=== PATIENT | female | born 1960 | race Caucasian/White ===

== ENCOUNTER 2018-07-30 10:29 | Emergency (ER) | payer OTHER, SELFPAY ==
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
--- NOTE | 2018-07-30 13:18 | RAD REPORT ---
EXAM DESCRIPTION: RAD - Chest Single View - 07/30/2018 1:03 pm CLINICAL HISTORY: chest tightness Chest pain. COMPARISON: No comparisons FINDINGS: Portable technique limits examination quality. The lungs are emphysematous but grossly clear. The heart is normal in size. No displaced fractures. IMPRESSION: COPD.
--- NOTE | 2018-07-30 13:23 | RAD REPORT ---
EXAM DESCRIPTION: US - Extrem Venous W Compress Delfin - 07/30/2018 1:18 pm CLINICAL HISTORY: leg swelling Bilateral leg edema and swelling. COMPARISON: No comparisons TECHNIQUE: Real-time sonographic interrogation of the left and right lower extremity deep venous sys tems was performed. FINDINGS: Normal compressibility, flow augmentation, phasic flow and spontaneous flow is identified in both the left and right lower extremity deep venous systems. Left Evans's cyst noted. IMPRESSION: No sonographic evidence of left or right lower extremity deep venous thrombosis.
[2018-07-30 13:36] LABS: Urine Blood TRACE (NEG); Urine Glucose NEGATIVE (NEG); Urine Protein NEGATIVE (NEG); Urine pH 6.5 (5.0-7.0)
[2018-07-30 13:43] LABS: Urine Bacteria <20 /HPF (<20); Urine Culture Reflex Order NOT NEEDED; Urine RBC <5 /HPF (NONE SEEN)
[2018-07-30] MEDS ORDERED: ALPRAZOLAM 1 MG TABLET ONE (14:18)
[2018-07-30 14:21] LABS: Absolute Monocytes 0.6 K/uL (0.1-1.3); Absolute Neutrophil 4.3 K/uL (1.8-8.0); Eosinophils % 3.9 % (0-4.4); Hematocrit 39.1 % (36.0-45.0); Lymphocytes % 27.7 % (15.3-44.8); Monocytes % 8.8 % (3.3-12.3); RBC Red Blood Cell Count 4.36 M/uL (3.86-4.86)
[2018-07-30 14:24] LABS: Protime INR 1.03
[2018-07-30 14:35] LABS: ALT/SGPT 29 U/L (12-78); AST/SGOT 24 U/L (15-37); Albumin 3.5 g/dL (3.4-5.0); Alkaline Phosphatase 65 U/L (45-117); BUN Blood Urea Nitrogen 13 mg/dL (7-18); Bicarbonate 29 mmol/L (21-32); Bilirubin Direct 0.1 mg/dL (0-0.2); Bilirubin Total 0.4 mg/dL (0.2-1.0); Glucose Level 92 mg/dL (74-106); Magnesium 2.1 mg/dL (1.8-2.4); NT PRO-BNP 62 pg/mL (<125); Potassium 3.6 mmol/L (3.5-5.1); Protein, Total 7.3 g/dL (6.4-8.2); Sodium Level 144 mmol/L (136-145); Troponin (Emerg Dept Use Only) < 0.02 ng/mL (0.0-0.045)
--- NOTE | 2018-07-30 15:09 | ER ---
Nurse's Notes [facility] Name: Ana Miranda Age: 57 yrs Sex: Female : 1960 Arrival Date: 07/30/2018 Time: 10:30 Bed 26 Private MD: Francois Xiao Diagnosis: Urinary tract infection, site not specified;Edema, unspecified Presentation: 07/30 10:44 Presenting complaint: Bilateral leg swelling and mid back pain x 2 days. Transition of hb care: patient was not received from another setting of care. 10:44 Method Of Arrival: Ambulatory hb 10:47 Onset of symptoms was July 29, 2018. Risk Assessment: Do you want to hurt yourself or hb someone else? Patient reports no desire to harm self or others. Care prior to arrival: None. 10:47 Acuity: TERESA 3 hb 11:36 Initial Sepsis Screen: Does the patient meet any 2 criteria? No. Patient's initial tw2 sepsis screen is negative. Does the patient have a suspected source of infection? No. Patient's initial sepsis screen is negative. Historical: - Allergies: 10:48 Codeine; hb 10:48 Doxycycline; hb 10:48 PENICILLINS; hb 10:48 Sulfa (Sulfonamide Antibiotics); hb - Immunization history:: Adult Immunizations up to date. - Social history:: Smoking status: Patient/guardian denies using tobacco. - Ebola Screening: : No symptoms or risks identified at this time. Screenin:35 Abuse screen: Denies threats or abuse. Nutritional screening: No deficits noted. tw2 Tuberculosis screening: No symptoms or risk factors identified. Fall Risk Secondary diagnosis (15 points) impaired mobility. Assessment: 11:30 General: Appears in no apparent distress. Behavior is calm, cooperative, appropriate hb for age, pt reports that her son recently after a long ICU stay and states "i have cried out all my fluids and i dont want to talk about it or i will cry out what little i have gained". Pain: Complains of pain in back. Neuro: Level of Consciousness is awake, alert, obeys commands, Oriented to person, place, time, situation. Cardiovascular: Heart tones S1 S2 Patient's skin is warm and dry. Respiratory: Airway is patent Respiratory effort is even, unlabored, Respiratory pattern is regular, symmetrical, Breath sounds are clear bilaterally. GI: No signs and/or symptoms were reported involving the gastrointestinal system. Abdomen is flat, Bowel sounds present X 4 quads. : No signs and/or symptoms were reported regarding the genitourinary system. EENT: No signs and/or symptoms were reported regarding the EENT system. Derm: No signs and/or symptoms reported regarding the dermatologic system. Musculoskeletal: Circulation, motion, and sensation intact. Reports swelling in LE and back pain. 12:20 Reassessment: Patient appears in no apparent distress at this time. No changes from hb previously documented assessment. Patient and/or family updated on plan of care and expected duration. Pain level reassessed. Patient is alert, oriented x 3, equal unlabored respirations, skin warm/dry/pink. 13:23 Reassessment: Patient appears in no apparent distress at this time. No changes from hb previously documented assessment. Patient and/or family updated on plan of care and expected duration. Pain level reassessed. Patient is alert, oriented x 3, equal unlabored respirations, skin warm/dry/pink. 14:44 Reassessment: Patient appears in no apparent distress at this time. No changes from tw2 previously documented assessment. Patient and/or family updated on plan of care and expected duration. Pain level reassessed. Patient is alert, oriented x 3, equal unlabored respirations, skin warm/dry/pink. 15:25 Reassessment: Patient appears in no apparent distress at this time. No changes from tw2 previously documented assessment. Patient and/or family updated on plan of care and expected duration. Pain level reassessed. Patient is alert, oriented x 3, equal unlabored respirations, skin warm/dry/pink. Vital Signs: 10:47 BP 157 / 77; Pulse 98; Resp 18; Temp 98.2; Pulse Ox 100% on R/A; Pain 4/10; hb 11:22 BP 128 / 62; Pulse 78; sv 12:20 BP 128 / 55; Pulse 72; Resp 17; Pulse Ox 98% on R/A; hb 13:21 BP 119 / 55; Pulse 79; Resp 20; Pulse Ox 98% on R/A; hb 14:43 BP 104 / 59; Pulse 88; Resp 15; Pulse Ox 100% on R/A; tw2 ED Course: 10:30 Patient arrived in ED. as 10:31 Francois Xiao MD is Private Physician. as 10:47 Triage completed. hb 10:48 Arm band placed on. hb 11:22 Bed in low position. Call light in reach. Adult w/ patient. Pulse ox on. NIBP on. tw2 11:23 Antoine Viveros PA is PHCP. jmm 11:23 Jordan Soto MD is Attending Physician. jmm 11:34 EKG done, by turfgrass technician. reviewed by Antoine LOPES. at1 11:35 Lynette Yusuf, RN is Primary Nurse. tw2 12:30 US Extremity Venous W Compression Delfin In Process Unspecified. EDMS 13:01 X-ray completed. Portable x-ray completed in exam room. Patient tolerated procedure jb2 well. 13:03 XRAY Chest (1 view) In Process Unspecified. EDMS 13:21 Missed attempt(s): 22 gauge in right forearm. Bleeding controlled, band aid applied, hb catheter tip intact. Missed attempt(s): 22 gauge in right forearm. notified tank chargerNOLAN Ellis RN, also unable to gain iv access at this time, provider notified.. Bleeding controlled, band aid applied, catheter tip intact. 15:08 Francois Xiao MD is Referral Physician. [facility] 15:24 No provider procedures requiring assistance completed. IV discontinued, intact, tw2 bleeding controlled, No redness/swelling at site. Pressure dressing applied. Administered Medications: 14:19 Drug: XANax Tablet 1 mg Route: PO; tw2 Outcome: 15:08 Discharge ordered by MD. [facility] 15:24 Discharged to home ambulatory. tw2 15:24 Condition: stable 15:24 Discharge instructions given to patient, Instructed on discharge instructions, follow up and referral plans. medication usage, Demonstrated understanding of instructions, follow-up care, medications, Prescriptions given X 1. 15:25 Patient left the ED. tw2 Signatures: Dispatcher [employer] EDMS Xuan Jimenes, Antoine Izquierdo RN, PA PA jmm Buechter, Jesse jb2 Rosie Moeller Amanda, dressed poultry grader EKG Tat1 Rhonda Calderon, NOLAN FRANCISCO Lynette Yusuf, RN RN tw2
--- NOTE | 2018-07-30 15:09 | EDPHYS ---
Physician Documentation [facility] Name: Ana Miranda Age: 57 yrs Sex: Female : 1960 Arrival Date: 07/30/2018 Time: 10:30 Bed 26 Private MD: Francois Xiao ED Physician Jordan Soto HPI: 07/30 11:41 This 57 yrs old Female presents to ER via Ambulatory with complaints of Leg jmm Swelling, Leg Pain. 11:41 The patient presents with pain, that is acute, swelling. Onset: The symptoms/episode jmm began/occurred gradually, 2 day(s) ago. Associated signs and symptoms: Pertinent positives: weakness, Pertinent negatives fever. This is a 57 year old female that presents to the ed with fatigue, lower extremity swelling, patient denies shortness of breath but describes chest tightness. Patient's son has recently and is concerned this may be due to stress. . Historical: - Allergies: 10:48 Codeine; hb 10:48 Doxycycline; hb 10:48 PENICILLINS; hb 10:48 Sulfa (Sulfonamide Antibiotics); hb - Immunization history:: Adult Immunizations up to date. - Social history:: Smoking status: Patient/guardian denies using tobacco. - Ebola Screening: : No symptoms or risks identified at this time. ROS: 11:41 Cardiovascular: Negative for chest pain, palpitations, and edema, Respiratory: Negative jmm for shortness of breath, cough, wheezing, and pleuritic chest pain. 11:41 Constitutional: Positive for fatigue. 11:41 MS/extremity: Positive for swelling. 11:41 All other systems are negative. Exam: 11:41 Constitutional: This is a well developed, well nourished patient who is awake, alert, jmm and in no acute distress. Head/Face: atraumatic. Eyes: EOMI, no conjunctival erythema appreciated ENT: Moist Mucus Membranes Neck: Trachea midline, Supple Chest/axilla: Normal chest wall appearance and motion. 11:41 Cardiovascular: Rate: normal, Rhythm: regular. 11:41 Respiratory: the patient does not display signs of respiratory distress, Respirations: normal, Breath sounds: are clear throughout. 11:41 Abdomen/GI: Inspection: abdomen appears normal, Bowel sounds: normal, Palpation: abdomen is soft and non-tender, in all quadrants. 11:41 Back: ROM is normal. 11:41 Musculoskeletal/extremity: ROM: intact in all extremities. 11:41 Musculoskeletal/extremity: bilateral peripheral edema appreciated, full dorsalis pulsed appreciated bilaterally, compartments are soft, NVI. 11:41 Skin: Appearance: Color: normal in color. 11:41 Neuro: Orientation: is normal, Mentation: is normal, Memory: is normal, Motor: is normal. 11:41 Psych: Behavior/mood is pleasant, cooperative. Vital Signs: 10:47 BP 157 / 77; Pulse 98; Resp 18; Temp 98.2; Pulse Ox 100% on R/A; Pain 4/10; hb 11:22 BP 128 / 62; Pulse 78; sv 12:20 BP 128 / 55; Pulse 72; Resp 17; Pulse Ox 98% on R/A; hb 13:21 BP 119 / 55; Pulse 79; Resp 20; Pulse Ox 98% on R/A; hb 14:43 BP 104 / 59; Pulse 88; Resp 15; Pulse Ox 100% on R/A; tw2 MDM: 11:41 Patient medically screened. [facility] 15:07 Data reviewed: vital signs, nurses notes. Counseling: I had a detailed discussion with tara the patient and/or guardian regarding: the historical points, exam findings, and any diagnostic results supporting the discharge/admit diagnosis, the need for outpatient follow up, to return to the emergency department if symptoms worsen or persist or if there are any questions or concerns that arise at home. 15:07 ED course: Patient is alert and non toxic in appearance in the ED. Patient is advised [facility] to follow up with PCP and otherwise given return precautions for fever, shortness of breath, or any other concerns. patient understood and agrees with the plan of care. . 07/30 11:43 Order name: Basic Metabolic Panel; Complete Time: 14:43 [facility] 07/30 11:43 Order name: CBC with Diff; Complete Time: 14:43 [facility] 07/30 11:43 Order name: LFT's; Complete Time: 14:43 [facility] 07/30 11:43 Order name: Magnesium; Complete Time: 14:43 [facility] 07/30 11:43 Order name: NT PRO-BNP; Complete Time: 14:43 [facility] 07/30 11:43 Order name: PT-INR; Complete Time: 14:43 [facility] 07/30 11:22 Order name: EKG; Complete Time: 11:22 07/30 11:22 Order name: EKG - Nurse/Tech; Complete Time: 11:31 sv 07/30 11:43 Order name: Troponin (emerg Dept Use Only); Complete Time: 14:43 [facility] 07/30 11:43 Order name: XRAY Chest (1 view); Complete Time: 13:25 [facility] 07/30 11:43 Order name: US Extremity Venous W Compression Delfin; Complete Time: 13:25 [facility] 07/30 13:28 Order name: Urine Microscopic Only; Complete Time: 14:06 hb 07/30 13:29 Order name: Urine Dipstick--Ancillary (enter results); Complete Time: 14:06 eb 07/30 11:43 Order name: Cardiac monitoring; Complete Time: 13:17 [facility] 07/30 11:43 Order name: Labs collected and sent; Complete Time: 14:40 [facility] 07/30 11:43 Order name: O2 Per Protocol; Complete Time: 13:13 [facility] 07/30 11:43 Order name: O2 Sat Monitoring; Complete Time: 13:13 [facility] Administered Medications: 14:19 Drug: XANax Tablet 1 mg Route: PO; tw2 Disposition: 07/30/18 15:08 Discharged to Home. Impression: Urinary tract infection, site not specified, Edema, unspecified. - Condition is Stable. - Discharge Instructions: Urinary Tract Infection, Adult, Peripheral Edema. - Prescriptions for Macrobid 100 mg Oral Capsule - take 1 capsule by ORAL route every 12 hours for 7 days; 14 capsule. - Medication Reconciliation Form, Thank You Letter, Antibiotic Education, Prescription Opioid Use form. - Follow up: Francois Xiao MD; When: 2 - 3 days; Reason: Recheck today's complaints, Continuance of care, Re-evaluation by your physician. Addendum: 08/02/2018 07:26 Co-signature as Attending Physician, Jordan Soto MD I agree with the assessment and k dr plan of care. Signatures: Dispatcher [employer] Xuan Chino RN RN sv Rittger, Kevin, MD MD kdr Mickail, Joel, PA PA m Calderon, Rhonda, RN RN hb Yusuf, Lynette, RN RN tw2 Corrections: (The following items were deleted from the chart) 07/30 15:25 15:08 07/30/2018 15:08 Discharged to Home. Impression: Urinary tract infection, site tw2 not specified; Edema, unspecified. Condition is Stable. Forms are Medication Reconciliation Form, Thank You Letter, Antibiotic Education, Prescription Opioid Use. Follow up: Francois Xiao; When: 2 - 3 days; Reason: Recheck today's complaints, Continuance of care, Re-evaluation by your physician. irvin 16:45 15:07 Counseling: I had a detailed discussion with the patient and/or guardian irvin regarding: the historical points, exam findings, and any diagnostic results supporting the discharge/admit diagnosis, the need for outpatient follow up, to return to the emergency department if symptoms worsen or persist or if there are any questions or concerns that arise at home, irvin
--- NOTE | 2018-07-30 15:54 | EKG ---
Test Date: 2018-07-30 Test Time: 11:27:25 Diagnostic Medical Sonographer: EDITA MEASUREMENT RESULTS: Intervals: Rate: 86 KS: 154 QRSD: 70 QT: 394 QTc: 471 [place]: P: 70 KS: 154 QRS: 47 T: 56 INTERPRETIVE STATEMENTS: Normal sinus rhythm Normal ECG Compared to ECG 07/23/2016 11:19:18 No significant changes Electronically Signed On 07-30-18 15:35:08 PUBLIC HEALTH INSPECTOR by Toby Khalil
== END 2018-07-30 15:25 | disposition home or self-care (01) ==
LOC: ER 10:29
DX: N39.0 Urinary tract infection, site not specified (principal); R60.9 Edema, unspecified; Z88.6 Allergy status to analgesic agent; Z88.0 Allergy status to penicillin; Z88.2 Allergy status to sulfonamides; Z88.3 Allergy status to other anti-infective agents
CPT/HCPCS: 36415; 71045; 80048; 80076; 81003; 81015; 83735; 83880; 84484; 85025; 85610; 93005; 93970; 99284